=== PATIENT | female | born 1955 | race Caucasian/White ===

== ENCOUNTER → 2019-02-09 | Outpatient (CLI) | payer MEDICARE, MEDICAID ==
[~2019-02-09] MED LIST: CYCL10TA9 PO; DULO60CA6 PO; GABA250S2 PO; HYDR-3714 PO; MELO-195 PO; MELO-198 PO; NAPR-243 PO; NITR100C3 PO; PRD20T PO; ROPI0.5T2 PO; SULF1TAB38 PO; TRM50T PO
== END ==
LOC: CARD 12:49
PROVIDERS: ATTEND Nurse Practitioner Family
DX: I11.9 Hypertensive heart disease without heart failure (principal); E78.5 Hyperlipidemia, unspecified
CPT/HCPCS: 93306